=== PATIENT | female | born 1975 | race Hispanic/Latino ===

== ENCOUNTER 2023-11-02 04:50 | Emergency (ER) | payer BC ==
[~2023-11-02] VITALS: Ht 137.2 cm; Wt 76.7 kg
[2023-11-02] MEDS: DiphenhydrAMINE HCL 50 MG/ML VIAL IV ONE (05:51)
[2023-11-02] MEDS: METOCLOPRAMIDE 10 MG/2 ML VIAL IVP ONE (05:51)
[2023-11-02] MEDS: KETOROLAC 30MG VIAL (30MG/ML) IVP ONE (05:51)
[2023-11-02] MEDS: CYCLOBENZAPRINE HCL 10 MG TABLET PO ONE (06:47)
[2023-11-02] MEDS: DEXAMETHASONE SOD PHOSPHATE 4 MG/ML 1ML VIAL IV ONE (06:48)
[2023-11-02] MEDS ORDERED: ACET-2079 PO (08:33)
[2023-11-02 08:58] VITALS: BP 138/66; PULSE 80; RESP 18; O2SAT 98
== END 2023-11-02 09:05 | disposition home or self-care (01) ==
LOC: EDH 04:50
DX: K08.89 Other specified disorders of teeth and supporting structures (principal); G43.909 Migraine, unspecified, not intractable, without status migrainosus; I10 Essential (primary) hypertension
CPT/HCPCS: 99284; 96374; 96375; J1100; J1200 ×2; J1885 ×2; J2765